=== PATIENT | male | born 1990 | race Caucasian/White ===

== ENCOUNTER 2019-04-04 07:05 | Day surgery (SDC) | payer OTHER ==
[2019-04-04] VITALS (11 sets, daily range): BP systolic 130–174; BP diastolic 75–95; PULSE 62–104; RESP 10–24
[~2019-04-04] VITALS: Ht 182.9 cm; Wt 99.3 kg
[2019-04-04] MEDS ORDERED: ACETAMINOPHEN 500 MG TAB PO ONE (10:30)
[2019-04-04] MEDS ORDERED: LACTATED RINGER'S 1,000 ML IV SCH (11:30)
[2019-04-04] MEDS ORDERED: SUGAMMADEX SODIUM 200 MG/2 ML VIAL IV ONE (13:00)
[2019-04-04] MEDS ORDERED: CEFAZOLIN 1 GM INJ ONE (13:00)
[2019-04-04] MEDS ORDERED: DEXAMETHASONE 4 MG/ML 5 ML INJ ONE (13:00)
[2019-04-04] MEDS ORDERED: DESFLURANE 15 MIN ONE (13:00)
[2019-04-04] MEDS ORDERED: PROPOFOL 40 ML ONE (13:05)
[2019-04-04] MEDS ORDERED: MIDAZOLAM 1 MG/ML 2 ML INJ ONE (13:05)
[2019-04-04] MEDS ORDERED: LIDOCAINE 2% (SDV) 5 ML INJ ONE (13:05)
[2019-04-04] MEDS ORDERED: ROCURONIUM 50 MG INJ ONE (13:05)
[2019-04-04] MEDS ORDERED: FENTAnyl 50 MCG/ML VIAL ONE (13:06)
[2019-04-04] MEDS ORDERED: FAMOTIDINE 20 MG INJ ONE (13:06)
[2019-04-04] MEDS ORDERED: ONDANSETRON 4 MG INJ ONE (13:06)
--- NOTE | 2019-04-04 13:49 | PREAC ---
Date/Time of Note Date/Time of Note DATE: 04/04/19 TIME: 13:47 Anesthesia Eval and Record Evaluation Time Pre-Procedure Interview DATE: 04/04/19 TIME: 13:47 Age 28 Sex male NPO: 8 hrs Preoperative diagnosis chronic nasal obstruction Planned procedure bilateral laser turbinoplasty and septoplasty Past Medical History Past Medical History: None Surgery & Anesthesia Issues No known issue (previous nurse surgery) Meds Anticoagulation: No Beta Radha within 24 hr: No Reason Beta Radha not given: Pt. not on B-Radha Discontinued Reported Medications [None] No Conflict Check 11/12/11 Current Medications Lactated Ringer's 1,000 ml @ 25 mls/hr Q24H IV Last administered on 04/04/19at 11:37; Admin Dose 25 MLS/HR; Start 04/04/19 at 11:30 Meds reviewed: Yes Allergies Coded Allergies: No Known Allergies (Verified Allergy, Unknown, 04/04/19) Allergies Reviewed: Yes Labs/Studies Labs Reviewed: Reviewed by anesthesiologist test: N/A Pre-procedure Exam Last vitals Vital Signs Date Temp Pulse Resp B/P (MAP) Pulse Ox O2 O2 Flow FiO2 Time Delivery Rate 04/04/19 98.1 62 16 130/75 99 Room Air 11:27 (93) Airway: Adequate mouth opening, Adequate thyromental dist Mallampati: Mallampati II Teeth: Normal Lung: Normal Heart: Normal ASA Physical Status ASA physical status: 1 Emergency: None Planned Anesthetic General/MAC: ETT Pre-operative Attestations Prior to commencing anesthesia and surgery, the patient was re-evaluated, there was verification of: *The patient's identity *The results of appropriate recent lab work and preoperative vital signs *The above evaluation not changing prior to induction *Anesthetic plan, risk benefits, alternative and complications discussed with patient/family; questions answered; patient/family understands, accepts and wishes to proceed. JW OCONNOR Apr 04, 2019 13:48
[2019-04-04] MEDS ORDERED: morphine 2 MG INJ IV PRN ×2 (14:00)
[2019-04-04] MEDS ORDERED: OXYCODONE/ACETAMINOPHEN (5/325) TAB PO PRN ×2 (14:00)
[2019-04-04] MEDS ORDERED: LABETALOL HCL 20MG INJ IV PRN (14:00)
[2019-04-04] MEDS ORDERED: ALBUTEROL 0.083% (NEB) 2.5 MG/3 ML AMP HHN PRN (14:00)
[2019-04-04] MEDS ORDERED: FENTAnyl 50 MCG/ML VIAL IV PRN ×2 (14:00)
[2019-04-04] MEDS ORDERED: DIPHENHYDRAMINE 50 MG INJ IV PRN (14:00)
[2019-04-04] MEDS ORDERED: HYDROmorphONE 1 MG/5 ML IV SYRINGE IV PRN ×3 (14:00)
[2019-04-04] MEDS ORDERED: MEPERIDINE 25 MG INJ IV PRN (14:00)
[2019-04-04] MEDS ORDERED: ONDANSETRON 4 MG INJ IV PRN (14:00)
[2019-04-04] MEDS ORDERED: LIDOCAINE 1%/EPI 30 ML INJ INJ ONE (14:36)
[2019-04-04] MEDS ORDERED: BACITRACIN/POLYMYXIN 0.9 GM OINT TOP ONE (14:37)
[2019-04-04] MEDS ORDERED: COCAINE 4% 4 ML TOP ONE (14:38)
--- NOTE | 2019-04-04 15:08 | OPR ---
Date/Time of Note Date/Time of Note DATE: 04/04/19 TIME: 15:02 Operative Report Procedure Date: Apr 04, 2019 Preoperative Diagnosis 1. SEPTAL DEVIATION. 2. BILATERAL NASAL TURBINATE TISSUE HYPERTROPHY. 3. CHRONIC NASAL OBSTRUCTION. Postoperative Diagnosis SAME. Operation/Procedure Performed 1. SEPTOPLASTY VIA [facility]. 2. BILATERAL NASAL TURBINOPLASTY USING KTP 532 NM LASER VIA [facility]. Surgeon see signature line Tool Maker Bench NONE. Anesthesia Type: general (4% 4CC COCCAINE TOPICAL 18 CC 1% LIDOCAINE WITH EPI 1:100,000 SOLN. OT TUBE INTUBATION.) Estimated Blood Loss: 10 - 50 ml's Transfusion none Specimen SEPTAL CARTILAGE. Grafts/Implants none Tubes/Drains NONE. Complications none Pt Condition Post Procedure: stable Disposition: PACU Indications TO IMPROVE BREATHING. Procedure Description SEE DICTATED OPERATIVE REPORT. DAY RODRÍGUEZ M.D. Apr 04, 2019 15:08
--- NOTE | 2019-04-04 15:09 | PDOCDIS ---
Discharge Instructions DIAGNOSIS Discharge Diagnosis 1. SEPTAL DEVIATION. 2. BILATERAL NASAL TURBINATE TISSUE HYPERTROPHY. 3. CHRONIC NASAL OBSTRUCTION. CONDITION [id number] Patient Condition: [id number] Good HOME CARE INSTRUCTIONS: [id number] Diet Instructions: Ifdjl2a Regular ACTIVITY: [id number] Activity Restrictions: Heocr0s Slowly Increase Activity Rest between Activity Avoid heavy lifting No Sexual Activity Avoid Heavy Housework [id number] Bathing Restrictions: [id number] Tub Bath FOLLOW UP/APPOINTMENTS Follow-up Plan MY OFFICE IN 7 TO 10 DAYS. SCHOOL/WORK RELEASE May return to School/Work on: Apr 10, 2019 May return to School/Work with: No Restrictions DAY RODRÍGUEZ M.D. Apr 04, 2019 15:09
--- NOTE | 2019-04-04 15:19 | PAC ---
Date/Time of Note Date/Time of Note DATE: 04/04/19 TIME: 15:18 Post-Anesthesia Notes Post-Anesthesia Note Last documented vital signs Vital Signs Date Temp Pulse Resp B/P Pulse Ox O2 O2 Flow FiO2 Time (MAP) Delivery Rate 04/04/19 98.1 97.9 62 99 16 16 130/75 99 100 Room 11:27 151 (93) 152 Air face 2 /81 mask 8L Activity: WNL Respiratory function: WNL Cardiovascular function: WNL Mental status: Baseline Pain reasonably controlled: Yes Hydration appropriate: Yes Nausea/Vomiting absent: Yes JW OCONNOR Apr 04, 2019 15:19
--- NOTE | 2019-04-04 22:52 | OPR ---
DATE OF OPERATION: 04/04/2019 SURGEON: Tobias Cueva MD PREOPERATIVE DIAGNOSES: 1. Septal deviation. 2. Bilateral nasal turbinate tissue hypertrophy. 3. Chronic nasal obstruction. POSTOPERATIVE DIAGNOSES: 1. Septal deviation. 2. Bilateral nasal turbinate tissue hypertrophy. 3. Chronic nasal obstruction. 4. 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 OPERATION PERFORMED: 1. A septoplasty and submucosal resection technique. 2. Bilateral nasoturbinoplasty procedure using a KTP 532 nanometer laser using submucosal resection technique. ESTIMATED BLOOD LOSS: Less than 25 mL. SPECIMENS SENT TO LAB: Septal cartilage. ANESTHETIC USED: General anesthesia with orotracheal tube intubation. The patient also received top ical cocaine 4 mL using 4%. The patient also had total of 18 mL of 1% lidocaine with epinephrine 1:1 00,000 injected into the nasal cavity. The patient also had IV Ancef and Decadron before the case wa s begun. INDICATIONS: Mr. Juan Diego Joel is a 28-year-old male who has a history of chronic nasal obstruction, found to have a septal deviation to the right, with bilaterally enlarged turbinates. e patient has been treated with multiple topical nasal steroids and decongestant medications which galaviz ve met with failure to help alleviate his nasal obstruction. The patient also has a history of previ ous nasal surgery, which he complains did not help him. The patient is currently scheduled for today 's procedure which include bilateral nasal turbinate tissue reduction using the laser with a septopla sty procedure. Risks, benefits, alternatives explained thoroughly to Mr. Joel. They include infec tion, bleeding, scar formation, possible septal perforation as well as failure of procedure. He also understands the risks of possible reactions to local and possible anesthetic agents being used for t he procedure. The patient has signed the consent once his questions were answered. FINDINGS DURING PROCEDURE: A right anterior septal deviation with bilateral enlarged turbinates with papillomatous degenerative mucosal changes. There are no signs of malignancies, tumors or polyps pr esent during the procedure. DISPOSITION: The patient left the operating room in good and satisfactory condition, extubated to e recovery room. DESCRIPTION OF PROCEDURE: The patient was taken to the operating room, placed on the surgical table in supine position, made comfortable by LIVESTOCK TRADER. The patient had EKG, saturation monitoring and blood p ressure cuff applied. The patient had a previously started IV in the preinduction area which was inf using well. The patient was given IV injection and placed under general anesthesia. The patient the n successfully orotracheally intubated with orotracheal cuffed tube without complication. It was tap ed to the right corner of the mouth. At this point, the vital signs noted to be stable. was locked and left in the midline. The pa tient was then draped out in usual sterile fashion using towels and a split sheet. Wet towels were p laced around the nasal cavity in preparation for laser use. A brief time-out with patient identifica tion and procedures entertained, and all were in agreement. At this point, the nasal cavity was inje cted using 1% lidocaine with epinephrine 1:100,000 using a 25-gauge 1-1/2 inch needle. This injectio n was carried out through the inferior turbinate, middle turbinate, floor of the nose and along the l ateral dorsum of the nose. There is also injection of the nasal spine area. The septum was also inj ected with this solution. At this point, cocaine was placed inside the nose using cottonoids in the anterior ethmoid and behind the middle turbinate areas. At this point, a KTP 532 nanometer laser was then made ready at 8 joe continuous power using a straight handheld handpiece with suction attachm ent. A foot pedal was used to activate the laser, which was used. At this point, the cottonoids wer e then removed from the nasal cavity and the inferior turbinate was noted to be extremely swollen. T he laser fiber was then introduced into the inferior turbinate and the anterior margin as the laser w as activated by foot pedal in the submucosal space. The left inferior turbinate was noted to shrink in size after application of the laser in the submucosal space. The fiber was advanced to the mid po rtion of the inferior turbinate on the left side where it was activated in the submucosal space. Thi s allowed for shrinkage of the entire two-thirds of the left anterior turbinate. A nasal speculum wa s then used to outfracture the turbinate towards the medial wall of the maxillary sinus. The right i nferior turbinate was done in a similar fashion. It too was vaporized in the submucosal space with t he use of the KTP 532 nanometer laser. The middle turbinate was also reduced on both sides in a regis lar fashion to give greater patency to the upper portion of the nasal cavity. Both the inferior and middle turbinates were outfractured towards the medial wall of the maxillary sinus. This ended the l aser portion of the procedure. A septoplasty procedure was performed by taking a #15 [employer]-Rufino sha rp stainless steel blade and making an incision in the anterior septal margin in a vertical direction . A mucoperichondrial flap was elevated on the left side with caudal elevator with care not to tear the flap. The initial hemitransfixion incision was then completed with another 15 Bard sharp then co blated to the right side with care not to incise the mucoperichondrial layer on the right side of the nose. The Hardee elevator was then advanced to the right side underneath the mucoperichondrium betw een the flap and the septal cartilage. There is some difficulty in dissecting this area due to previ ous adhesions and scarring from his previous surgery. A small portion of the septum on the superior aspect was removed and sent to the lab as septal cartilage. The remaining septal cartilage was noted to swing back towards the midline after dissection in the posterior aspect of the cartilage. The se ptum appeared to be straight and in the midline. The hemitransfixion incision was then closed using a 4-0 Vicryl suture in simple interrupted fashion. Multiple plication sutures were placed in the are a to keep the flap together and preventing hematoma formation. The septum was then noted to be in th e midline as there was minimal bleeding. The nasal cavity was suctioned with a Mannnig suction as ba citracin ointment was placed inside the nose as a packing and mustache dressing was placed beneath th e nasal area. This ended the procedure. Sponge count and instrument counts were correct x3. There were no complications during the procedure. The patient was then reversed from general anesthetic ag ent, extubated in the operating room, taken to recovery room where he is currently doing well, expect to be discharged home unless postoperative complications develop. Dictated By: TOBIAS CROOKS/ERIC Conf#: [id number] DID#: [id number]
== END 2019-04-04 17:30 | disposition home or self-care (01) ==
LOC: SDS 07:05
PROVIDERS: ATTEND Otolaryngology Otolaryngology/Facial Plastic Surgery
DX: J34.2 Deviated nasal septum (principal); J34.3 Hypertrophy of nasal turbinates
CPT/HCPCS: 30140; 30520; J0690; J1100; J1170; J2250; J2405; J3010; J7120; Z7512; Z7610; 88300